=== PATIENT | female | born 1950 | race African-American/Black ===

== ENCOUNTER 2019-06-06 19:34 | Emergency (ER) | payer OTHER ==
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
[2019-06-06 20:03] VITALS: BMI 19.3
[2019-06-06] MEDS ORDERED: ACETAMINOPHEN 500 MG TABLET (FP) PO ONE (20:43)
[2019-06-06] MEDS ORDERED: LIDOCAINE 5% TOPICAL PATCH TP ONE (20:43)
[2019-06-06] MEDS ORDERED: LIDOCAINE 5% TOPICAL PATCH ONE (21:00)
[2019-06-06] MEDS ORDERED: ACETAMINOPHEN 325 MG TABLET (FP) ONE (21:00)
[2019-06-06 21:25] LABS: BASO % 1.1 % (0-2.0); EOS % 3.9 % (0-4.5); HEMATOCRIT 36.2 % (32.4-45.2); HEMOGLOBIN 11.9 GM/dL (10.7-15.3); MCH 31.1 pg (25.7-33.7); MCHC 32.8 g/dl (32.0-36.0); PLATELET COUNT 249 K/MM3 (134-434); RBC 3.82 M/mm3 (3.60-5.2); RDW 14.8 % (11.6-15.6); WHITE BLOOD COUNT 4.6 K/mm3 (4.0-10.0)
[2019-06-06 21:30] LABS: EPI CELLS 0.1 /HPF (0-5/HPF); HYALINE CASTS 1 /lpf (0-8); URINE APPEARANCE CLEAR; URINE BILIRUBIN NEGATIVE (NEGATIVE); URINE COLOR YELLOW; URINE GLUCOSE (UA) NEGATIVE (NEGATIVE); URINE KETONE NEGATIVE (NEGATIVE); URINE LEUK ESTERASE NEGATIVE (NEGATIVE); URINE NITRITE NEGATIVE (NEGATIVE); URINE PROTEIN NEGATIVE (NEGATIVE); URINE RBC 1 /hpf (0-4); URINE UROBILINOGEN 0.2 mg/dL (0.2-1.0); URINE WBC 0 /hpf (0-5)
[2019-06-06 21:43] LABS: PHOSPHOROUS 3.6 mg/dL (2.5-4.9)
[2019-06-06 21:44] LABS: ALBUMIN 3.3 g/dl (3.4-5.0); BILIRUBIN,TOTAL 0.3 mg/dL (0.2-1); BLOOD UREA NITROGEN 24.4 mg/dL (7-18); CREATININE 0.7 mg/dL (0.55-1.3); TOT PROT 6.3 g/dl (6.4-8.2)
[2019-06-06] MEDS ORDERED: LIDOCAINE PATCH REMOVAL MC SCH (22:00)
--- NOTE | 2019-06-06 22:06 | PDOC ---
History of Present Illness - General Chief Complaint: Pain Stated Complaint: BACK/ABD PAIN Time Seen by Provider: 06/06/19 19:47 History Source: Patient, Family (Son and [id number] present at bedside.) Exam Limitations: Dementia - History of Present Illness Initial Comments: HPI: 69 y/o female presenting to [facility] ER complaining of chronic, intermittent bilateral lower back pain with possible radiation to bilateral lower abdominal quadrants. Pt was recently diagnosed with dementia while admitted at another facility. The interview was limited as the pt had difficulty describing the symptoms and the timeline of events. Believes she has the back pain once a month or once every other month. The abdominal pain sometimes happens before she has a BM. Denies diarrhea, constipation, or bloody bowel movements. Denies trauma to the area, numbness/tingling/weakness in the lower extremities, bowel incontinence, or urinary retention. Of note, the pt has recently moved in with her son and [id number]. Both are present at bedside. Expressed concern for poor personal hygiene while living alone. She has not been evaluated by her PCP recently. Family is not able to recall the name of the doctor, and are unable to locate it. Medical Hx: - Bipolar / Depression - not medicated - Dementia Review of Systems: In addition to that documented in the HPI above, the additional ROS was obtained : Constitutional- Denies fevers or chills Head- Denies vision changes ENMT- Denies sore throat CV- Denies chest pain Resp- Denies SOB GI- Denies vomiting or diarrhea - Denies painful urination, hematuria MSK- Denies recent trauma Skin- Denies new rashes Neuro- Denies new numbness or tingling or weakness Endocrine- Denies polyuria Heme- Denies bleeding or bruising Physical Examination: Constitutional- Thin, cachexic elderly adult female in no acute distress or obvious discomfort. Found semi-fowlers on hospital bed. Head- Normocephalic. No obvious external signs of trauma. Cardiovascular / Chest- Regular rate and regular rhythm. No murmur, rubs, clicks , or gallops. Peripheral pulses- radial pulses full. No pretibial edema. Respiratory- Breathing unlabored. Equal chest rise and fall. Clear to auscultation bilaterally. No stridor, no wheezing, no rhonchi. Gastrointestinal- abdomen is soft, non-tender, non-distended. No pulsatile masses. No overlying skin lesions or obvious signs of trauma. Neuro- Alert and oriented to person, place, time, but confused about recent events. Moving all four extremities spontaneously. No facial asymmetry. No slurred speech. Skin- Warm, dry, and intact. - No R or L CVA tenderness. Psych- Affect- appropriate. Mood- normal. Speech was non-labored, non- pressured. MDM: *Reviewed vital signs, nursing notes, and prior visit documentation (if available). 69 y/o female presenting with chronic lower back pain and lower abdominal pain occurring in the setting of new dementia diagnosis. Afebrile. Vitals unremarkable for hypotension or tachycardia. Physical exam as described above. Labs unremarkable for significant electrolyte derangement. Suspect mild malnutrition given low protein. UA unremarkable for pyuria, nitrites, or leukocyte esterase. CT scan remarkable for chronic appearing degenerative disc disease, as well as stool. Suspect abd pain is likely related to constipation. Pt reassessed and reports improved back pain with Tylenol and Lidoderm patch. Suspect back pain is MSK in nature. Discussed labs and CT results with pt and family. Answered all questions. Provided return precautions. Pt and family expressed verbal understanding and agreement with plan to discharge home with outpatient follow up. Provided copies of todays results. Provided referral to [facility]. Prescribed topical NSAID therapy for back pain. Prescribed Miralax for constipation. Robin Thompson M.D., PGY2 Emergency Medicine Resident Past History - Past Medical History Allergies/Adverse Reactions: Allergies Allergy/AdvReac Type Severity Reaction Status Date / Time No Known Allergies Allergy Verified 06/06/19 19:54 Home Medications: Ambulatory Orders Diclofenac Sodium [Diclofono] 2.5 gm TP BID PRN #1 gel.packet 06/06/19 Polyethylene Glycol 3350 [Miralax (For Bowel Prep) -] 17 gm PO DAILY #1 bottle 06/06/19 COPD: No Dementia: Yes - Psycho Social/Smoking Cessation Hx Smoking History: Never smoked Have you smoked in the past 12 months: No Information on smoking cessation initiated: No Hx Alcohol Use: No Drug/Substance Use Hx: No *Physical Exam - Vital Signs Last Vital Signs Temp Pulse Resp BP Pulse Ox 98.7 F 79 17 108/59 L 100 06/06/19 19:46 06/06/19 19:46 06/06/19 19:46 06/06/19 19:46 06/06/19 19:46 ED Treatment Course - LABORATORY CBC & Chemistry Diagram: 06/06/19 20:52 06/06/19 20:52 - ADDITIONAL ORDERS Additional order review: Laboratory Results 06/06/19 06/06/19 06/06/19 20:52 20:52 20:52 Sodium 144 Potassium 4.0 Chloride 113 H Carbon Dioxide 27 Anion Gap 5 L BUN 24.4 H Creatinine 0.7 Est GFR (CKD-EPI)AfAm 101.74 Est GFR (CKD-EPI)NonAf 87.78 Random Glucose 85 Calcium 9.0 Phosphorus 3.6 Magnesium 2.0 Total Bilirubin 0.3 AST 20 ALT 18 Alkaline Phosphatase 54 Total Protein 6.3 L Albumin 3.3 L Urine Color Yellow Urine Appearance Clear Urine pH 5.0 Ur Specific [place] 1.014 Urine Protein Negative Urine Glucose (UA) Negative Urine Ketones Negative Urine Blood Trace Urine Nitrite Negative Urine Bilirubin Negative Urine Urobilinogen 0.2 Ur Leukocyte Esterase Negative Urine WBC (Auto) 0 Urine RBC (Auto) 1 Urine Casts (Auto) 1 U Epithel Cells (Auto) 0.1 Urine Bacteria (Auto) 1.0 06/06/19 20:52 RBC 3.82 MCV 95.0 MCHC 32.8 RDW 14.8 MPV 8.0 Neutrophils % 62.0 Lymphocytes % 25.0 Monocytes % 8.0 Eosinophils % 3.9 Basophils % 1.1 - RADIOLOGY Radiology Studies Ordered: Category Date Time Status LUMBAR SPINE CT W/O CONTRAST [CT] Stat CT Scan 06/06/19 20:42 Taken - Medications Given in the ED: ED Medications Discontinued Medications Generic Name Dose Route Start Last Admin Trade Name Bruceq PRN Reason Stop Dose Admin Acetaminophen 650 mg 06/06/19 20:43 06/06/19 21:04 Tylenol - PO 06/06/19 20:44 650 mg ONCE ONE Administration Lidocaine 1 patch 06/06/19 20:43 06/06/19 21:04 Lidoderm Patch - TP 06/06/19 20:44 1 patch ONCE ONE Administration Discharge - Discharge Information Problems reviewed: Yes Clinical Impression/Diagnosis: Chronic bilateral lower abdominal pain Chronic lower back pain Qualifiers: Back pain laterality: bilateral Sciatica presence: without sciatica Qualified Code(s): M54.5 - Low back pain Condition: Stable Disposition: HOME - Admission No - Additional Discharge Information Prescriptions: Diclofenac Sodium [Diclofono] 2.5 gm TP BID PRN #1 gel.packet PRN Reason: Back Pain Polyethylene Glycol 3350 [Miralax (For Bowel Prep) -] 17 gm PO DAILY #1 bottle - Follow up/Referral Referrals: Surinder Jay MD [Staff Physician] - [facility] [place] [facility] [place] [Provider Group] - Patient Discharge Instructions Patient Printed Discharge Instructions: DI for Low Back Pain, DI for Abdominal Pain-Adult Additional Instructions: You were seen today for lower back pain and abdominal pain. Your blood and urine tests were normal. Your CT scan showed you have arthritis in your back, which is likely the cause of your pain. It also showed you have a fair amount of stool in your stomach. This is likely the cause of your abdominal pain. I have sent two prescriptions to your pharmacy. The first is for a topical pain medication called Diclofenac. The second is for Miralax, which helps with constipation. Take as directed on the package inserts. Do not exceed the recommended dosages. You can also try taking over the counter Tylenol and Icy Hot patches. Take as directed on the package inserts. Do not exceed the recommended dosages. You should follow up with a primary care doctor in the next few days. I have entered a referral for you to see Dr. Jay, a geriatric doctor. You will need to call to make an appointment. The number is included in this packet. A copy of todays results are attached to this packet. Take it to the appointment so your doctor can review them. I also entered a referral for you to see a primary care physician at [facility] [place] Internal [facility] [place] [facility]. You will need to call to make an appointment in the next 2-4 days. The telephone number is [phone]. The address is- [facility] [place] Internal Medicine at [address], [place] [address] Go to the nearest emergency department if your condition worsens or you feel like you need additional emergency evaluation. Print Language: GUINEAN - Post Discharge Activity Work/Back to School Note: Back to Work
--- NOTE | 2019-06-06 22:56 | PDOC ---
Attending Attestation - Resident Resident Name: Robin Thompson - ED Attending Attestation I have performed the following: I have examined & evaluated the patient, The case was reviewed & discussed with the resident, I agree w/resident's findings & plan, Exceptions are as noted - HPI HPI: 06/06/19 22:52 69 yo F with h/o dementia, currently livng with family here today c/o bilat back pain radiating to front. pt states her sxs have been ongoing for a while. denies new leg numbness or tingling. no urinary complaint. no f/c no cp no sob. no trauma or falls. back pain is bilat lower back off midline. was recently admitted for dementia, does not have a pcp. - Physicial Exam PE: 06/06/19 22:54 awake alert moist mucous membranes. lungs clear bilat heart rrr no mrg abd soft nt nd no midline spinal tenderness. paraspinal l/s muscle spasm. 5/5 bilat lower ext strength. 2 + dp/ pt pulses. no appreciated edema. sensation intact bilat lower ext. - Medical Decision Making 06/06/19 22:54 69 yo F with dementia, decreased appetitie, back pain, and weight loss. differential hypercalcemia, compression fx, msk strain, djd. uti pyelo, plan ct l/s spin ua lab. ua negative for infection. ls spine only dgd no compression fx. noted to have large stool on ct. focused ED renal us performed. no hydronephrosis. bladder nondistended. no aaa noted. plan dc home, tylenol for low back pain. stool softner for constipation. 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
[2019-06-06 23:07] VITALS: BP 110/76; PULSE 89; TEMP 98.6
== END 2019-06-06 23:16 | disposition home or self-care (01) ==
LOC: JER 19:34
PROC: BT43ZZZ Ultrasonography of Bilateral Kidneys (ICD-10-PCS; principal; 2019-06-06)
DX: R13.0 Aphagia (principal); R10.30 Lower abdominal pain, unspecified; F03.90 Unspecified dementia, unspecified severity, without behavioral disturbance, psychotic disturbance, mood disturbance, and anxiety
CPT/HCPCS: 36415; 72131-TC; 76775; 80053; 81003; 83735; 84100; 85025; 87086; 99282-25

== ENCOUNTER 2020-05-18 19:01 | Emergency (ER) | payer OTHER ==
[2020-05-18 19:36] VITALS: BP 119/69; PULSE 82; TEMP 98.5; BMI 22.8
--- OUTSIDE RECORDS SUMMARY | 2020-05-18 19:43 | XMS ---
:03/18/1949 Author Organization [facility] Support Name Relationship Address Phone RE Unavailable Unavailable Unavailable UE Unavailable Unavailable Unavailable DEWAYNE FRASER SON [address] [place] [address] Re-disclosure Warning The records that you are about to access may contain information from federally- assisted alcohol or drug abuse programs. If such information is present, then the following federally mandated warning applies: This information has been disclosed to you from records protected by federal confidentiality rules (42 CFR part 2). The federal rules prohibit you from making any further disclosure of this information unless further disclosure is expressly permitted by the written consent of the person to whom it pertains or as otherwise permitted by 42 CFR part 2. A general authorization for the release of medical or other information is NOT sufficient for this purpose. The Federal rules restrict any use of the information to criminally investigate or prosecute any alcohol or drug abuse patient.The records that you are about to access may contain highly sensitive health information, the redisclosure of which is protected by Article 27-F of the [facility] Public Health law. If you continue you may haveaccess to information: Regarding HIV / AIDS; Provided by facilities licensed or operated by the [facility] Office of Mental Health; or Provided by the [facility] Office for People With Developmental Disabilities. If such information is present, then the following [facility] mandated warning applies: This information has been disclosed to you from confidential records which are protected by state law. State law prohibits you from making any further disclosure of this information without the specific written consent of the person to whom it pertains, or as otherwise permitted by law. Any unauthorized further disclosure in violation of state law may result in a fine or snf sentence or both. A general authorization for the release of medical or other information is NOT sufficient authorization for further disclosure. Insurance Providers Payer name Policy type Policy ID Covered Covered alliance party's Policy P blanca / Coverage alliance party ID relationship to [facility] [employer] or[employer] type cline SELF PAY SP INSURANCE MEDICARE [id number]
--- NOTE | 2020-05-18 21:07 | PDOC ---
History of Present Illness - General Chief Complaint: Ingestion Stated Complaint: CLORAX INGESTION Time Seen by Provider: 05/18/20 20:55 - History of Present Illness Initial Comments: HPI: 05/18/20 21:10 71 yo F PMH dementia, presenting after reported Clorox ingestion. Lives with son, who provides all history. Per son, saw mother holding open bottle of Clorox Fraganzia and wiping her mouth with a napkin at around 1900, concern for possible ingestion. Patients complain of mild intermittent nausea, but without any vomiting. Specifically denies CP, SOB, vomiting, difficulty swallowing. Patient is at her baseline mental status ROS: GENERAL/CONSTITUTIONAL: denies fever, chills, diaphoresis HEAD, EYES, EARS, NOSE AND THROAT: denies rhinorrhea, nasal congestion, throat pain, throat swelling, difficulty swallowing, mouth swelling NEUROLOGIC: denies headache, dizziness, mental status changes CARDIOVASCULAR: denies chest pain, palpitations, lightheadedness RESPIRATORY: denies cough, shortness of breath, dyspnea with exertion, wheezing, stridor GASTROINTESTINAL: endorses nausea without vomiting. Denies abdominal pain, abdominal distension, diarrhea, constipation GENITOURINARY: denies dysuria, frequency, urgency MUSCULOSKELETAL: denies myalgia, arthralgia SKIN: denies rash, itching PE: Gen: well-developed, well-nourished, pleasant Neuro: AAOX1 (own name, thinks she is in [place], does not know the year), CN II-XII intact HEENT: atraumatic, normocephalic. No oral erythema or edema Neck: trachea midline, supple CV: regular rate, regular rhythm, no murmurs, rubs, or gallops Pulm: CTA b/l, no wheezing Abd: soft, non-distended, non-tender MSK: full ROM, intact pulses Extr: no edema, no deformities Skin: warm, dry MDM: Concern for potential toxic ingestion. Clorox Fraganzia appears to be a bleach free product. Called Poison Control Center, . Explained history. Per Poison Control, if patient has not yet show symptoms such as vomiting, dysphagia, or stridor, she can be dc'd for outpatient monitoring after PO challenge. May have diarrhea tomorrow. Asks that we provide son with the number to the Poison Control Center to call if there are any changes. - PO challenge passed without issue - dc for further outpatient management Past History - Medical History Allergies/Adverse Reactions: Allergies Allergy/AdvReac Type Severity Reaction Status Date / Time No Known Allergies Allergy Verified 06/06/19 19:54 Home Medications: Ambulatory Orders Diclofenac Sodium [Diclofono] 2.5 gm TP BID PRN #1 gel.packet 06/06/19 Polyethylene Glycol 3350 [Miralax (For Bowel Prep) -] 17 gm PO DAILY #1 bottle 06/06/19 COPD: No Dementia: Yes - Psycho-Social/Smoking History Smoking History: Never smoked Have you smoked in the past 12 months: No - Substance Abuse Hx (Audit-C & DAST Scrn) How often the patient has a drink containing alcohol: Never Score: In Men: 4 or > Positive; In Women: 3 or > Positive: 0 Screen Result (Pos requires Nsg. Audit-10AR): Negative In the last yr the pt used illegal drug/Rx for NonMed reason: No Score: Yes response is considered Positive: 0 Screen Result (Positive result requires Nsg. DAST-10): Negative *Physical Exam - Vital Signs Last Vital Signs Temp Pulse Resp BP Pulse Ox 98.5 F 82 19 119/69 98 05/18/20 19:29 05/18/20 19:29 05/18/20 19:29 05/18/20 19:29 05/18/20 19:29 Discharge - Discharge Information Problems reviewed: Yes Clinical Impression/Diagnosis: Ingestion of detergent or soap Condition: Stable Disposition: HOME - Admission No - Follow up/Referral - Patient Discharge Instructions Additional Instructions: You were seen after ingestion of Clorox Fraganzia. You did not have vomiting, trouble breathing, or difficulty swallowing, and you were able to keep down food and water. You may have some diarrhea tomorrow, but otherwise should not have further symptoms. The Poison Control Center's number is [phone], and they are aware of this case. You may call them if there are any new symptoms. Please follow up with your primary care doctor within one week. Return to the ER if you develop new or worsening symptoms. - Post Discharge Activity
--- NOTE | 2020-05-18 21:33 | PDOC ---
Documentation entered by Tayla Lamar SCRIBE, acting as scribe for Michelle Hernández MD. Michelle Hernández MD: This documentation has been prepared by the scribe, Tayla Lamar SCRIBE, under my direction and personally reviewed by me in its entirety. I confirm that the documentation accurately reflects all work, treatment, procedures, and medical decision making performed by me. Attending Attestation - Resident Resident Name: David Ni - ED Attending Attestation I have performed the following: I have examined & evaluated the patient, The case was reviewed & discussed with the resident, I agree w/resident's findings & plan, Exceptions are as noted - HPI HPI: 05/18/20 21:00 Patient is a 71 year old female with a significant past medical history of dementia . Her son found her with a bottle of Clorox Fraganzia and she was wiping her mouth with a napkin. Her son was concerned that she swallowed the detergent . Patient denies: Allergies: NKDA 05/18/20 21:18 - Physicial Exam PE: 05/18/20 21:01 GENERAL: Well-appearing, well-nourished. No apparent distress. HEENT: Normocephalic, atraumatic. PERRL, EOM intact. CARDIOVASCULAR: Normal S1, S2. Regular rate and rhythm. PULMONARY: Clear to auscultation bilaterally. ABDOMEN: Soft, non-distended, non-tender. EXTREMITIES: Normal ROM in all four extremities. No gross deformities. SKIN: Warm, dry. No rash NEUROLOGICAL: alert,conversant ,moving all extremities ,Poor historian. 05/18/20 21:21 - Medical Decision Making 05/18/20 21:25 Poison Control was contacted and this product is bleach FREE . Poison control does not recommend any interventions at this time Discharge - Discharge Information Problems reviewed: Yes Clinical Impression/Diagnosis: Ingestion of detergent or soap Condition: Stable Disposition: HOME - Follow up/Referral - Patient Discharge Instructions Additional Instructions: You were seen after ingestion of Clorox Fraganzia. You did not have vomiting, trouble breathing, or difficulty swallowing, and you were able to keep down food and water. You may have some diarrhea tomorrow, but otherwise should not have further symptoms. The Poison Control Center's number is [phone], and they are aware of this case. You may call them if there are any new symptoms. Please follow up with your primary care doctor within one week. Return to the ER if you develop new or worsening symptoms. - Post Discharge Activity
== END 2020-05-18 22:00 | disposition home or self-care (01) ==
LOC: JER 19:01
DX: T55.0X1A Toxic effect of soaps, accidental (unintentional), initial encounter (principal)
CPT/HCPCS: 99282-25

== ENCOUNTER 2021-02-22 14:23 | Inpatient (IN) | payer OTHER ==
[2021-02-22] MEDS ORDERED: KETOROLAC TROMETHAMINE 15 MG/ML VIAL IM ONE (15:18)
[2021-02-22] MEDS ORDERED: ACETAMINOPHEN 325 MG TABLET (FP) PO ONE (15:18)
[2021-02-22] MEDS ORDERED: METHOCARBAMOL 500 MG TABLET PO ONE (15:18)
[2021-02-22] MEDS ORDERED: LIDOCAINE 5% TOPICAL PATCH TP ONE (15:18)
[2021-02-22] MEDS ORDERED: ACETAMINOPHEN 325 MG TABLET (FP) ONE (15:23)
[2021-02-22] MEDS ORDERED: METHOCARBAMOL 500 MG TABLET ONE (15:23)
[2021-02-22] MEDS ORDERED: LIDOCAINE 5% TOPICAL PATCH ONE (15:23)
[2021-02-22] MEDS ORDERED: KETOROLAC TROMETHAMINE 15 MG/ML VIAL ONE (15:24)
[2021-02-22 18:13] LABS: BASO % 1.1 % (0-2.0); EOS % 1.4 % (0-4.5); HEMATOCRIT 41.5 % (32.4-45.2); MCHC 33.7 g/dl (32.0-36.0); MONO % 11.6 % (3.8-10.2); NEUT % 38.9 % (42.8-82.8); PLATELET COUNT 251 10^3/uL (134-434); RBC 4.51 M/mm3 (3.60-5.2); RDW 14.1 % (11.6-15.6)
[2021-02-22 18:23] LABS: CALCIUM 9.3 mg/dL (8.5-10.1)
[2021-02-22 18:24] LABS: ALBUMIN 3.4 g/dl (3.4-5.0); BLOOD UREA NITROGEN 13.4 mg/dL (7-18)
[2021-02-22 18:27] LABS: CREATININE 0.8 mg/dL (0.55-1.3)
[2021-02-22 18:29] LABS: BILIRUBIN,TOTAL 0.4 mg/dL (0.2-1); TOT PROT 7.1 g/dl (6.4-8.2)
[2021-02-22] MEDS ORDERED: ACETAMINOPHEN 325 MG TABLET (FP) PO PRN (18:49)
[2021-02-22] MEDS ORDERED: LIDOCAINE PATCH REMOVAL MC SCH (22:00)
[2021-02-23 01:34] VITALS: BMI 23.4
[2021-02-23 07:45] LABS: BASO % 1.6 % (0-2.0); EOS % 2.8 % (0-4.5); HEMATOCRIT 42.9 % (32.4-45.2); HEMOGLOBIN 14.3 GM/dL (10.7-15.3); LYMPH % 43.3 % (8-40); MCH 30.3 pg (25.7-33.7); MCHC 33.3 g/dl (32.0-36.0); MEAN PLT VOLUME 7.5 fl (7.5-11.1); MONO % 11.7 % (3.8-10.2); NEUT % 40.6 % (42.8-82.8); PLATELET COUNT 229 10^3/uL (134-434); RBC 4.71 M/mm3 (3.60-5.2); RDW 13.8 % (11.6-15.6); WHITE BLOOD COUNT 2.6 K/mm3 (4.0-10.0)
[2021-02-23 08:06] LABS: CALCIUM 9.4 mg/dL (8.5-10.1)
[2021-02-23 08:07] LABS: ALBUMIN 3.4 g/dl (3.4-5.0); BLOOD UREA NITROGEN 10.6 mg/dL (7-18); MAGNESIUM 2.1 mg/dL (1.8-2.4)
[2021-02-23 08:10] LABS: CREATININE 0.8 mg/dL (0.55-1.3); PHOSPHOROUS 3.5 mg/dL (2.5-4.9)
[2021-02-23 08:12] LABS: BILIRUBIN,TOTAL 0.5 mg/dL (0.2-1); TOT PROT 6.9 g/dl (6.4-8.2)
[2021-02-23] MEDS ORDERED: ENOXAPARIN NA (PORCINE) 40 MG/0.4 ML DISP.SYRIN SQ SCH (10:00)
[2021-02-23] MEDS ORDERED: LIDOCAINE 5% TOPICAL PATCH TP ONE (14:41)
[2021-02-23] MEDS ORDERED: LIDOCAINE PATCH REMOVAL MC ONE (22:00)
[2021-02-24 09:16] LABS: HEMATOCRIT 44.4 % (32.4-45.2); HEMOGLOBIN 14.8 GM/dL (10.7-15.3); MCH 30.8 pg (25.7-33.7); MCHC 33.4 g/dl (32.0-36.0); MEAN CELL VOLUME 92.1 fl (80-96); MEAN PLT VOLUME 7.7 fl (7.5-11.1); PLATELET COUNT 264 10^3/uL (134-434); RBC 4.82 M/mm3 (3.60-5.2); RDW 13.9 % (11.6-15.6); WHITE BLOOD COUNT 2.8 K/mm3 (4.0-10.0)
[2021-02-24 09:57] LABS: BLOOD UREA NITROGEN 10.1 mg/dL (7-18)
[2021-02-24 09:58] VITALS: BP 112/78; PULSE 84; TEMP 99.3
[2021-02-24 10:01] LABS: MAGNESIUM 2.2 mg/dL (1.8-2.4)
[2021-02-24 10:02] LABS: CREATININE 0.9 mg/dL (0.55-1.3)
[2021-02-24 10:05] LABS: PHOSPHOROUS 3.7 mg/dL (2.5-4.9)
[2021-02-24 10:26] LABS: CALCIUM 9.4 mg/dL (8.5-10.1)
== END 2021-02-24 11:45 | DRG 552 ==
LOC: JER 14:23 → JERBED 16:53 → J6S 02-23 00:09 → OBSVTOIN 02-23 09:27 → J6S 02-23 19:43
PROVIDERS: ATTEND Internal Medicine
DX: M54.5 Low back pain (principal); F03.90 Unspecified dementia, unspecified severity, without behavioral disturbance, psychotic disturbance, mood disturbance, and anxiety
CPT/HCPCS: 36415; 71045-TC-FY; 80048; 80053; 83735; 84100; 85025; 85027; 93005; 93010; 97116-GP; 97161-GP; 99285-25; C9803; G0378; U0003; U0005

== ENCOUNTER 2023-07-26 18:12 | Inpatient (IN) | payer OTHER ==
[2023-07-26] MEDS ORDERED: SODIUM CHLORIDE 1,000 ML IV STA (18:31)
[2023-07-26] MEDS ORDERED: PIPERACILLIN/TAZOB 4.5 GM 4.5 GM in DEXTROSE 5%-WATER 100 ML IVPB ONE (18:49)
[2023-07-26] MEDS ORDERED: VANCOMYCIN 1,000 MG in DEXTROSE 5%-WATER - 250 ML IVPB ONE (18:49)
[2023-07-26] MEDS ORDERED: ACETAMINOPHEN 1000 MG/100 ML BAG IVPB ONE (18:49)
[2023-07-26 19:02] LABS: HEMATOCRIT 48.9 % (32.4-45.2); HEMOGLOBIN 14.4 GM/dL (10.7-15.3); MCHC 29.4 g/dl (32.0-36.0); MEAN PLT VOLUME 10.2 fl (7.5-11.1); PLATELET COUNT 114 10^3/uL (134-434); RBC 4.79 M/mm3 (3.60-5.2); RDW 17.7 % (11.6-15.6); WHITE BLOOD COUNT 2.8 K/mm3 (4.0-10.0)
[2023-07-26 19:03] LABS: VENOUS BASE EXCESS -4.5 mmol/L (-2-2); VENOUS O2 SATURATION 59.4 % (70-80)
[2023-07-26 19:07] LABS: INR 1.29 (0.83-1.09); PROTHROMBIN TIME (PATIENT) 14.9 SEC (9.7-13.0)
[2023-07-26 19:08] LABS: VENOUS PCO2 77.1 mmHg (38-52); VENOUS PH 7.153 (7.310-7.410)
[2023-07-26] MEDS ORDERED: ACETAMINOPHEN INJECTION 100 ML IVPB ONE (19:08)
[2023-07-26] MEDS ORDERED: VANCOMYCIN 1 GRAM (PRE-DOCKED) 1,000 MG/250 ML BAG IVPB ONE (19:08)
[2023-07-26] MEDS ORDERED: PIPERACILLIN/TAZOB 4.5 GM 4.5 GM/100 ML BAG IVPB ONE (19:08)
[2023-07-26 19:11] LABS: ACTIVATED PTT 19.6 SECONDS (25.2-36.5)
[2023-07-26 19:19] LABS: CHLORIDE 154 mmol/L (98-107); POTASSIUM 3.5 mmol/L (3.5-5.1)
[2023-07-26 19:22] LABS: CALCIUM 8.6 mg/dL (8.5-10.1); GLUCOSE,RANDOM 173 mg/dL (74-106)
[2023-07-26 19:23] LABS: ALBUMIN 2.6 g/dl (3.4-5.0); BLOOD UREA NITROGEN 43.4 mg/dL (7-18); CO2 29 mmol/L (21-32)
[2023-07-26 19:25] LABS: CREATININE 1.8 mg/dL (0.55-1.3); SGOT/AST 52 U/L (15-37); SGPT/ALT 66 U/L (13-61)
[2023-07-26 19:27] LABS: ALK PHOS 224 U/L (45-117); BILIRUBIN,TOTAL 0.6 mg/dL (0.2-1); TOT PROT 6.8 g/dl (6.4-8.2)
[2023-07-26 19:33] LABS: ANION GAP 2 mmol/L (4-13); SODIUM 185 mmol/L (136-145)
[2023-07-26 19:34] LABS: LACTIC ACID 4.5 mmol/L (0.4-2.0)
[2023-07-26 19:58] VITALS: BMI 25.0
[2023-07-26] MEDS ORDERED: HEPARIN NA (PORCINE) 5,000 UNITS/ML 1ML VIAL IVPUSH PRN ×4 (20:21→20:22)
[2023-07-26] MEDS ORDERED: HEPARIN NA (PORCINE) 5,000 UNITS/ML 1ML VIAL IVPUSH ONE (20:21)
[2023-07-26] MEDS ORDERED: HEPARIN - 25,000 UNIT in SODIUM CHLORIDE 495 ML IV SCH (20:30)
[2023-07-26 20:34] LABS: EPI CELLS >36 /uL (0-25.1); HYALINE CASTS 2 /uL (0-3.1); URINE APPEARANCE CLOUDY; URINE BACTERIA 6931 /uL (0-1359); URINE BILIRUBIN NEGATIVE (NEGATIVE); URINE COLOR YELLOW; URINE GLUCOSE (UA) NEGATIVE (NEGATIVE); URINE KETONE NEGATIVE (NEGATIVE); URINE LEUK ESTERASE 1+ (NEGATIVE); URINE NITRITE POSITIVE (NEGATIVE); URINE PROTEIN 2+ (NEGATIVE); URINE RBC 7 /uL (0-23.9); URINE UROBILINOGEN 0.2 mg/dL (0.2-1.0); URINE WBC 74 /uL (0-25.8)
[2023-07-26 20:45] LABS: ANISOCYTOSIS 2+; MACROCYTOSIS 0; TEAR DROP CELLS 2+
[2023-07-26] MEDS ORDERED: HEPARIN INFUSION - 25,000 UNITS/500 ML INFUS.BAG IVPB ONE (20:55)
[2023-07-26] MEDS ORDERED: HEPARIN NA (PORCINE) 5,000 UNITS/ML 1ML VIAL ONE (20:55)
[2023-07-26 21:28] LABS: CHLORIDE 154 mmol/L (98-107); POTASSIUM 3.3 mmol/L (3.5-5.1)
[2023-07-26 21:29] LABS: CALCIUM 8.6 mg/dL (8.5-10.1)
[2023-07-26 21:31] LABS: BLOOD UREA NITROGEN 48.2 mg/dL (7-18); CO2 27 mmol/L (21-32); GLUCOSE,RANDOM 183 mg/dL (74-106)
[2023-07-26 21:34] LABS: CREATININE 1.8 mg/dL (0.55-1.3)
[2023-07-26] MEDS ORDERED: DEXTROSE 5%-WATER - 1,000 ML IV SCH (21:45)
[2023-07-26] MEDS: MUPIROCIN 2% TOPICAL OINTMENT FOR DECOLONIZATION NS SCH (21:50)
[2023-07-26 21:52] LABS: ANION GAP 3 mmol/L (4-13); SODIUM 184 mmol/L (136-145)
[2023-07-26] MEDS ORDERED: LACTATED RINGERS SOLUTION 1,000 ML/1,000 ML INFUS.BAG IV STA ×3 (21:58→23:56)
[2023-07-26] MEDS ORDERED: NOREPINEPHRINE 0.9 % NACL 8 MG/250 ML BAG IVPB SCH (22:00)
[2023-07-26] MEDS ORDERED: REMDESIVIR 200 MG in SODIUM CHLORIDE 250 ML IVPB ONE (22:00)
[2023-07-26] MEDS ORDERED: CHLORHEXIDINE GLUCONATE 4% CLEANSER FOR DECOLONIZATION TP SCH (22:00)
[2023-07-26] MEDS ORDERED: VASOPRESSIN 20 UNITS/ML VIAL IV ONE (22:41)
[2023-07-26] MEDS ORDERED: TRIPLE LUMEN FLUSH 4 ML ML IVPUSH PRN (22:48)
[2023-07-26] MEDS ORDERED: LACTATED RINGERS SOLUTION 1,000 ML/1,000 ML INFUS.BAG IV ONE (22:49)
[2023-07-26] MEDS ORDERED: VASOPRESSIN 40 UNITS/100 ML BAG IV SCH (23:00)
[2023-07-26] MEDS ORDERED: PROPOFOL 1,000,000 MCG/100 ML VIAL IVPB SCH (23:15)
[2023-07-26 23:31] LABS: PT'S TEMP 100.4; VENT MODE A/C; VENT RATE 28
[2023-07-26 23:32] LABS: ARTERIAL BLD GAS O2 SATURATION 93.6 % (95-98); ARTERIAL BLOOD GAS BASE EXCESS -5.9 mmol/L (-2-2); ARTERIAL BLOOD GAS PO2 79.4 mmHg (80-100); ARTERIAL BLOOD GAS pH 7.242 (7.350-7.450)
[2023-07-26] MEDS ORDERED: FENTANYL IVPB 500 MCG/100 ML BAG IVPB SCH (23:45)
[2023-07-27] MEDS ORDERED: FENTANYL NS IVPB 500 MCG/100 ML BAG IVPB ONE
[2023-07-27] MEDS ORDERED: ROCURONIUM BROMIDE 50 MG/5 ML VIAL IV ONE (00:17)
[2023-07-27] MEDS ORDERED: HYDROCORTISONE SOD SUCCINATE 100 MG/2 ML VIAL ONE (00:25)
[2023-07-27] MEDS ORDERED: ROCURONIUM BROMIDE 50 MG/5 ML VIAL ONE (00:26)
[2023-07-27] MEDS: HYDROCORTISONE SOD SUCCINATE 100 MG/2 ML VIAL IVPUSH SCH ×2 (00:26→05:45)
[2023-07-27 00:42] LABS: LACTIC ACID 3.8 mmol/L (0.4-2.0)
[2023-07-27] MEDS ORDERED: EPINEPHrine/PF 1 MG/1 ML (1:1,000) AMPULE ONE (00:42)
[2023-07-27] MEDS ORDERED: EPINEPHrine 1:1,000 1,000 MCG in DEXTROSE 5%-WATER - 249 ML IVPB SCH (00:45)
[2023-07-27] MEDS ORDERED: EPINEPHrine 1:1,000 1,000 MCG in SODIUM CHLORIDE 249 ML IVPB SCH (00:45)
[2023-07-27] MEDS ORDERED: POTASSIUM CHLORIDE ORAL LIQUID 20 MEQ/15 ML PO ONE (00:54)
[2023-07-27] MEDS: PIPERACILLIN/TAZOB 3.375 GM 3.375 GM in DEXTROSE 5%-WATER - 50 ML IVPB SCH ×2 (01:11→09:47)
[2023-07-27] MEDS ORDERED: PIPERACILLIN/TAZOB 3.375 GM 3.375 GM in DEXTROSE 5%-WATER - 50 ML IVPB SCH (02:00)
[2023-07-27 03:48] LABS: ALBUMIN 1.6 g/dl (3.4-5.0); ALK PHOS 142 U/L (45-117); ANION GAP 6 mmol/L (4-13); BILIRUBIN,TOTAL 0.4 mg/dL (0.2-1); BLOOD UREA NITROGEN 44.9 mg/dL (7-18); CALCIUM 7.7 mg/dL (8.5-10.1); CHLORIDE 145 mmol/L (98-107); CO2 21 mmol/L (21-32); GLUCOSE,RANDOM 249 mg/dL (74-106); MAGNESIUM 2.2 mg/dL (1.8-2.4); PHOSPHOROUS 3.3 mg/dL (2.5-4.9); POTASSIUM 2.6 mmol/L (3.5-5.1); SGOT/AST 52 U/L (15-37); SGPT/ALT 46 U/L (13-61); SODIUM 171 mmol/L (136-145); TOT PROT 4.4 g/dl (6.4-8.2)
[2023-07-27] MEDS: KCL 20 MEQ PREMIX BAG 100 ML IVPB SCH ×3 (04:42→07:06)
[2023-07-27] MEDS: ACETAMINOPHEN 1000 MG/100 ML BAG IVPB SCH (05:46)
[2023-07-27 06:46] LABS: ARTERIAL BLD GAS O2 SATURATION 96.3 % (95-98); ARTERIAL BLOOD GAS BASE EXCESS -13.7 mmol/L (-2-2); ARTERIAL BLOOD GAS PO2 107.6 mmHg (80-100)
[2023-07-27 06:58] LABS: PT'S TEMP 95.4; VENT MODE A/C; VENT RATE 32
[2023-07-27 06:59] LABS: ARTERIAL BLOOD GAS pH 7.142 (7.350-7.450)
[2023-07-27 07:09] LABS: LACTIC ACID 6.5 mmol/L (0.4-2.0)
[2023-07-27 07:26] LABS: HEMATOCRIT 39.9 % (32.4-45.2); HEMOGLOBIN 11.8 GM/dL (10.7-15.3); MCH 30.2 pg (25.7-33.7); MCHC 29.7 g/dl (32.0-36.0); MEAN CELL VOLUME 101.7 fl (80-96); MEAN PLT VOLUME 10.1 fl (7.5-11.1); PLATELET COUNT 70 10^3/uL (134-434); RBC 3.92 M/mm3 (3.60-5.2); RDW 17.8 % (11.6-15.6)
[2023-07-27 07:29] LABS: WHITE BLOOD COUNT 3.9 K/mm3 (4.0-10.0)
[2023-07-27] MEDS ORDERED: KCL 10 MEQ IVPB 10 MEQ/100 ML INFUS.BAG IVPB SCH (07:45)
[2023-07-27] MEDS ORDERED: SODIUM BICARBONATE 8.4% - 75 MEQ in DEXTROSE 5%-WATER - 1,000 ML IV SCH (09:00)
[2023-07-27 09:07] LABS: ANISOCYTOSIS 0; CORRECTED WBC 2.95 K/mm3; MACROCYTOSIS 1+
[2023-07-27] MEDS: MUPIROCIN 2% TOPICAL OINTMENT FOR DECOLONIZATION NS SCH (09:46)
[2023-07-27] MEDS ORDERED: PANTOPRAZOLE SODIUM 40 MG VIAL IVPUSH SCH (10:00)
[2023-07-27] MEDS ORDERED: FLUDROCORTISONE ACETATE 0.1 MG TABLET (FP) PO SCH (10:00)
[2023-07-27] MEDS ORDERED: DEXAMETHASONE SOD PHOSPHATE 10 MG/1 ML VIAL IVPUSH SCH (10:00)
[2023-07-27 10:23] VITALS: TEMP 97.3
[2023-07-27 10:40] LABS: POTASSIUM 5.7 mmol/L (3.5-5.1)
[2023-07-27 10:42] LABS: CALCIUM 7.1 mg/dL (8.5-10.1)
[2023-07-27 10:44] LABS: ALBUMIN 1.5 g/dl (3.4-5.0); BLOOD UREA NITROGEN 46.5 mg/dL (7-18); MAGNESIUM 2.7 mg/dL (1.8-2.4)
[2023-07-27 10:46] LABS: CREATININE 2.7 mg/dL (0.55-1.3)
[2023-07-27 10:48] LABS: TOT PROT 4.3 g/dl (6.4-8.2)
[2023-07-27 10:49] LABS: BILIRUBIN,TOTAL 0.7 mg/dL (0.2-1)
[2023-07-27 11:11] LABS: CHLORIDE 134 mmol/L (98-107); POTASSIUM 5.6 mmol/L (3.5-5.1)
[2023-07-27 11:12] LABS: BLOOD UREA NITROGEN 44.9 mg/dL (7-18); CALCIUM 7.1 mg/dL (8.5-10.1); CO2 15 mmol/L (21-32); GLUCOSE,RANDOM 379 mg/dL (74-106)
[2023-07-27 11:15] LABS: CREATININE 2.7 mg/dL (0.55-1.3)
[2023-07-27 11:18] LABS: HEMOGLOBIN 11.5 GM/dL (10.7-15.3); MCH 29.9 pg (25.7-33.7); MCHC 27.3 g/dl (32.0-36.0); MEAN CELL VOLUME 109.5 fl (80-96); MEAN PLT VOLUME 9.1 fl (7.5-11.1); PLATELET COUNT 47 10^3/uL (134-434); RBC 3.83 M/mm3 (3.60-5.2)
[2023-07-27 11:20] LABS: ANION GAP 13 mmol/L (4-13); SODIUM 161 mmol/L (136-145)
[2023-07-27 12:04] LABS: PHOSPHOROUS 8.8 mg/dL (2.5-4.9)
[2023-07-27 12:08] VITALS: BP 72/16; PULSE 58; RESP 29
[2023-07-27 12:37] LABS: ANISOCYTOSIS 0; MACROCYTOSIS 2+
[2023-07-27 13:05] LABS: WHITE BLOOD COUNT 4.7 K/mm3 (4.0-10.0)
== END 2023-07-27 12:50 | disposition expired | DRG 871 ==
LOC: JER 18:12 → JERBED 19:59 → JICU 21:45
PROVIDERS: ADMIT Internal Medicine Pulmonary Disease; ATTEND Internal Medicine Pulmonary Disease
PROC: 05H633Z Insertion of Infusion Device into Left Subclavian Vein, Percutaneous Approach (ICD-10-PCS; principal; 2023-07-26)
PROC: 4A133B1 Monitoring of Arterial Pressure, Peripheral, Percutaneous Approach (ICD-10-PCS; 2023-07-26)
PROC: 4A133J1 Monitoring of Arterial Pulse, Peripheral, Percutaneous Approach (ICD-10-PCS; 2023-07-26)
PROC: 5A12012 Performance of Cardiac Output, Single, Manual (ICD-10-PCS; 2023-07-26)
PROC: 5A1935Z Respiratory Ventilation, Less than 24 Consecutive Hours (ICD-10-PCS; 2023-07-26)
DX: A41.89 Other specified sepsis (principal); J12.82 Pneumonia due to coronavirus disease 2019; U07.1 COVID-19; R65.21 Severe sepsis with septic shock; J80 Acute respiratory distress syndrome; N39.0 Urinary tract infection, site not specified; E87.0 Hyperosmolality and hypernatremia; N17.9 Acute kidney failure, unspecified; E87.20 Acidosis, unspecified; G30.9 Alzheimer's disease, unspecified; F02.80 Dementia in other diseases classified elsewhere, unspecified severity, without behavioral disturbance, psychotic disturbance, mood disturbance, and anxiety; E86.1 Hypovolemia; E87.5 Hyperkalemia; I95.9 Hypotension, unspecified; E86.0 Dehydration
CPT/HCPCS: 0241U-QW; 36415; 36600; 71045-TC-FY; 80048; 80053; 81003; 82550; 82553; 82803; 82962; 83036; 83605; 83735; 84100; 84436; 84484; 85025; 85384; 85610; 85730; 86140; 86850; 86900; 86901; 87040; 87086; 87186; 93005; 93010; 94002; 99285-25; J0248; J1644; J3490